=== PATIENT | male | born 1940 | race Caucasian/White ===

== ENCOUNTER → 2018-02-03 | Outpatient (CLI) | payer OTHER | LOC: FIMAGING 15:07 | PROVIDERS: ATTEND Internal Medicine | DX: M51.36 Other intervertebral disc degeneration, lumbar region (principal); M53.2X7 Spinal instabilities, lumbosacral region ==

== ENCOUNTER → 2018-02-11 | Outpatient (CLI) | payer OTHER | LOC: FIMAGING 19:07 | PROVIDERS: ATTEND Internal Medicine | DX: M51.36 Other intervertebral disc degeneration, lumbar region (principal); M43.16 Spondylolisthesis, lumbar region; M99.73 Connective tissue and disc stenosis of intervertebral foramina of lumbar region ==

== ENCOUNTER 2018-03-16 12:52 | Emergency (ER) | payer OTHER ==
[2018-03-16] MEDS ORDERED: TDAP ADULT 0.5 ML INJ (BOOSTRIX) IM ONE (13:15)
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
[2018-03-16] MEDS ORDERED: SILVER NITRATE APPLICATOR 1 APPL TP ONE (13:39)
[2018-03-16 14:50] VITALS: BP 128/74
== END 2018-03-16 14:50 | disposition home or self-care (01) ==
PROC: 0HQGXZZ Repair Left Hand Skin, External Approach (ICD-10-PCS; principal; 2018-03-16)
DX: S61.201A Unspecified open wound of left index finger without damage to nail, initial encounter (principal); W31.2XXA Contact with powered woodworking and forming machines, initial encounter; Y92.019 Unspecified place in single-family (private) house as the place of occurrence of the external cause

== ENCOUNTER → 2018-09-03 | Outpatient (CLI) | payer OTHER ==
[~2018-09-03] MED LIST: IOPAMIDOL (ISOVUE-300) 100 ML BTL ONE
== END ==
LOC: FIMAGING 08:40
PROVIDERS: ATTEND Internal Medicine
DX: K57.32 Diverticulitis of large intestine without perforation or abscess without bleeding (principal); K59.00 Constipation, unspecified
CPT/HCPCS: 74177; Q9967; 82565-PO

== ENCOUNTER → 2018-09-05 | Outpatient (CLI) | payer OTHER | LOC: FIMAGING 09:00 | PROVIDERS: ATTEND Internal Medicine | DX: R91.8 Other nonspecific abnormal finding of lung field (principal); K76.89 Other specified diseases of liver; S22.02 Fracture of second thoracic vertebra; S22.03 Fracture of third thoracic vertebra ==

== ENCOUNTER 2018-09-25 12:51 | Day surgery (SDC) | payer OTHER ==
[2018-09-25] MEDS ORDERED: EPINEPHrine 1 MG/ML INJ ONE (13:12)
[2018-09-25] MEDS ORDERED: LIDOCAINE 2% JELLY 6 ML TOPICAL SYR ONE (13:12)
[2018-09-25] MEDS ORDERED: LIDOCAINE 1% 300 MG/30 ML SDV ONE ×2 (13:12→14:31)
[2018-09-25] MEDS ORDERED: ALBUTEROL 3 ML DEYVIAL ONE (13:22)
[2018-09-25] MEDS ORDERED: MIDAZOLAM 2 MG/2 ML VIAL ONE ×2 (13:54→14:51)
[2018-09-25] MEDS ORDERED: fentaNYL 100 MCG/2 ML INJ ONE (13:54)
--- NOTE | 2018-09-25 14:07 | PDPROPOC ---
Sedation Plan of Care Sedation Plan of Care: vital signs stable, mental status noted, patient educated of risks, benefits, alternatives, patient can tolerate sedation ASA Classification: ASA 2 Planned drugs: fentanyl, midazolam Mallampati Score: Class 1 Mallampati Reference Image: Patient passed 3-3-2 rule?: Yes
--- NOTE | 2018-09-25 14:07 | PDHPUP ---
History & Physical Update H&P update statement: This history and physical update is based on an assessment of the patient which was completed after admission or registration (within 24 hours), but prior to the surgery/procedure. H&P update: H&P reviewed & patient examined, no change in patient's condition since H&P completed
--- NOTE | 2018-09-25 16:20 | GPN ---
[f rep st] PROCEDURE NOTE PROCEDURE: Bronchoscopy. REASON FOR BRONCHOSCOPY: Asymptomatic left lower lobe 2 cm mass lesion with surrounding areas of nod ularity/infiltrate. Query etiology. DESCRIPTION OF PROCEDURE: The procedure was performed in the endoscopy unit. Appropriate time-out w as performed. Informed consent was obtained from the patient. The posterior oropharynx was anesthet ized with 5 cc of 4% lidocaine. The lower tracheobronchial tree was anesthetized with approximately 25 cc of 1% lidocaine given initially and then intermittently throughout the procedure for cough. Co nscious sedation included 7 mg of Versed IV and 175 mcg of fentanyl. Fiberoptic bronchoscope was passed via bite block orally in the larynx. The vocal cords were identif ied. They move normally with cough and respiration. There were mildly edematous. The bronchoscope was then advanced into the trachea and in the lower tracheobronchial tree bilaterally. All areas wer e observed to at least the first subsegmental level. Bronchoscopy was performed in the left lower lo be. Secretions bilaterally were modest, pale yellow. There were no endobronchial lesions. Specific ally, the left lower lobe was normal. There was no extrinsic compression. Bronchoalveolar lavage sa mples and bronchial washes were obtained from the left lower lobe and combined. [place] biopsy samples were obtained from left lower lobe laterally as well. Following this, transbronchial biopsies were obtained from the area of the patient's nodule/mass seen on fluoroscopy. The first bronchoscope brok e during brush biopsy samples. A second bronchoscope was brought to the endoscopy suite and this was used to complete the procedure, including the biopsies. The procedure thus was longer than anticipa arelis and the patient received more Versed and fentanyl as a result of this to maintain adequate sedati on. There were no complications. There was no evidence of a pneumothorax by fluoroscopy at the end of e procedure. Bleeding was minimal, certainly less than 10 cc, but some bleeding was present. This a ppeared to be mostly resolved at the time that the bronchoscope was removed. Vital signs and oxygen saturations on supplemental oxygen remained normal throughout the procedure. Appropriate samples were sent to the laboratory for cultures, cytologies, and pathology. IMPRESSION: 1. Normal endobronchial anatomy related to the left lower lobe. 2. Modest secretions. 3. Left lower lobe nodule/mass, query etiology. /[id number]/MODL
[2018-09-25 18:07] VITALS: BP 92/51
== END 2018-09-25 16:35 | disposition home or self-care (01) ==
LOC: FSGY 12:51
PROVIDERS: ATTEND Internal Medicine Pulmonary Disease
DX: R91.1 Solitary pulmonary nodule (principal); N40.0 Benign prostatic hyperplasia without lower urinary tract symptoms; F32.9 Major depressive disorder, single episode, unspecified; E78.00 Pure hypercholesterolemia, unspecified; G62.9 Polyneuropathy, unspecified
CPT/HCPCS: J0171; J2250; J3010; J7613